=== PATIENT | female | born 1955 | race Hispanic/Latino ===

== ENCOUNTER → 2022-03-23 | Outpatient (CLI) | payer OTHER, MEDICARE ==
[~2022-03-23] MED LIST: FENOFIBRATE PO; FERROUSSULFATE PO; IOHEXOL 350 MG/ML 100ML INFUS..BTL IV ONE; LEVO-70 PO; LOSA100T58 PO; RANI150C4 PO; TRAM-355 PO
== END | disposition home or self-care (01) ==
LOC: RAH 09:03
PROVIDERS: ATTEND Family Medicine
DX: G44.221 Chronic tension-type headache, intractable (principal)
CPT/HCPCS: 70470; Q9967

== ENCOUNTER 2022-07-29 20:25 | Emergency (ER) | payer OTHER, MEDICARE ==
[~2022-07-29] VITALS: Ht 152.4 cm; Wt 81.6 kg
[~2022-07-29 20:25] MED LIST changes: -IOHEXOL 350 MG/ML 100ML INFUS..BTL IV ONE
[2022-07-29] MEDS ORDERED: 0.9%NACL 1000ML 1,000 ML IV SCH (20:30)
[2022-07-29] MEDS ORDERED: ONDANSETRON 4MG INJ IVP ONE ×2 (20:30→21:30)
[2022-07-29 21:20] LABS: EOSINOPHILS % (AUTO) 1.8 % (0.0-8.0); HEMATOCRIT 40.2 % (36-48); LYMPHOCYTES % (AUTO) 35.9 % (21.0-51.0); MEAN CORPUSCULAR HEMOGLOBIN 31.4 pg (27.0-33.0); MEAN CORPUSCULAR HGB CONC 32.6 g/dL (32.0-36.0); MEAN CORPUSCULAR VOLUME 96.4 fL (79-99); MONOCYTES % (AUTO) 6.4 % (3.0-13.0); NEUTROPHILS % (AUTO) 54.2 % (40.0-77.0); PLATELET COUNT (AUTO) 313 K/uL (130-400); RED BLOOD CELL COUNT(AUTO) 4.17 MIL/uL (4.00-5.50); RED CELL DISTRIBUTION WIDTH 12.4 % (11.0-15.5)
[2022-07-29 21:27] LABS: CREATININE 1.2 mg/dL (0.5-1.5); POTASSIUM 3.6 mmol/L (3.5-5.1)
[2022-07-29 21:30] LABS: APPEARANCE,URINE CLOUDY (CLEAR); BILIRUBIN,URINE NEGATIVE (NEGATIVE); COLOR,URINE YELLOW (YELLOW); GLUCOSE, URINE (UA) NEGATIVE (NEGATIVE); KETONES,URINE NEGATIVE (NEGATIVE); LEUKOCYTE ESTERASE ,URINE NEGATIVE Leu/uL (NEGATIVE); NITRATE,URINE NEGATIVE (NEGATIVE); OCCULT BLOOD,URINE SMALL (NEGATIVE); PROTEIN,URINE 100 mg/dL (NEGATIVE)
[2022-07-29 21:31] LABS: ALBUMIN 3.7 g/dL (3.5-5.0)
[2022-07-29 21:39] LABS: RBC,URINE 0-1 /HPF (0-1); WBC,URINE 0-1 /HPF (0-1)
[2022-07-29 21:40] LABS: BACTERIA,URINE Few /HPF (None Seen)
[2022-07-29 21:41] LABS: CALCIUM OXALATE CRYSTALS,UR Few /LPF (None Seen); SQUAMOUS EPITHELIAL CELL,UR Few /HPF (0-2)
[2022-07-29] MEDS ORDERED: 0.9% NACL 500ML IV.SOLN 500 ML IV ONE (22:42)
[2022-07-29] MEDS ORDERED: 0.9%NACL 1000ML 500 ML IV SCH (23:00)
[2022-07-30 01:40] VITALS: BP 133/78
== END 2022-07-30 01:41 | disposition home or self-care (01) ==
LOC: EDH 20:25
DX: D33.3 Benign neoplasm of cranial nerves (principal); R42 Dizziness and giddiness; R11.2 Nausea with vomiting, unspecified; E78.00 Pure hypercholesterolemia, unspecified; G43.909 Migraine, unspecified, not intractable, without status migrainosus; I10 Essential (primary) hypertension; Z88.0 Allergy status to penicillin
CPT/HCPCS: 99285; 84484; 80053; 83690; 85025; 87040 ×2; 83605 ×2; 81001; 36415; 70450; 96374; 96361; 96376; 93005; J7040; J7030; J2405 ×2; 96375

== ENCOUNTER → 2023-03-09 | Outpatient (CLI) | payer OTHER, MEDICARE ==
[~2023-03-09] VITALS: Ht 152.4 cm; Wt 69.5 kg
[~2023-03-09] MED LIST changes: -LOSA100T58 PO; +LOSA100T59 PO
[2023-03-09 09:18] LABS: BASOPHILS # (AUTO) 0.07 K/uL (0.00-0.20); BASOPHILS % (AUTO) 0.9 % (0.0-5.0); EOSINOPHILS % (AUTO) 2.5 % (0.0-8.0); HEMATOCRIT 39.2 % (36-48); IMMATURE GRANULOCYTE ABSOLUTE 0.02 K/uL (0-1); LYMPHOCYTES # (AUTO) 2.8 K/uL (1.0-4.8); LYMPHOCYTES % (AUTO) 34.3 % (21.0-51.0); MEAN CORPUSCULAR HEMOGLOBIN 31.4 pg (27.0-33.0); MEAN CORPUSCULAR HGB CONC 32.7 g/dL (32.0-36.0); MEAN CORPUSCULAR VOLUME 96.3 fL (79-99); MONOCYTES # (AUTO) 0.7 K/uL (0.1-1.0); NEUTROPHILS # (AUTO) 4.3 K/uL (1.8-7.7); NEUTROPHILS % (AUTO) 53.1 % (40.0-77.0); PLATELET COUNT (AUTO) 283 K/uL (130-400); RED BLOOD CELL COUNT(AUTO) 4.07 MIL/uL (4.00-5.50); RED CELL DISTRIBUTION WIDTH 12.6 % (11.0-15.5); WHITE BLOOD COUNT (AUTO) 8.1 K/uL (4.8-10.8)
[2023-03-09 09:28] LABS: CREATININE 1.1 mg/dL (0.5-1.5); POTASSIUM 4.1 mmol/L (3.5-5.1)
[2023-03-09 09:30] VITALS: BP 170/91; PULSE 56; RESP 17
[2023-03-09 09:32] LABS: INR < 0.93 (0.85-1.15); PROTHROMBIN TIME 10.5 SEC (9.6-11.6)
[2023-03-09 09:33] LABS: PARTIAL THROMBOPLASTIN TIME 30.7 SEC (26.3-35.5)
== END | disposition home or self-care (01) ==
LOC: CANPRESDC → DAH 10:00 → EDSTATUS 03-25 08:00
PROVIDERS: ATTEND Surgery
DX: Z01.812 Encounter for preprocedural laboratory examination (principal); K43.6 Other and unspecified ventral hernia with obstruction, without gangrene
CPT/HCPCS: 36415; 80048; 85025; 85610; 85730; 93005; A6260

== ENCOUNTER 2024-05-10 20:40 | Emergency (ER) | payer OTHER, MEDICARE ==
[~2024-05-10] VITALS: Ht 152.4 cm; Wt 67.1 kg
[~2024-05-10 20:40] MED LIST changes: -FENOFIBRATE PO; -FERROUSSULFATE PO; -LEVO-70 PO; -RANI150C4 PO; -TRAM-355 PO
--- NOTE | 2024-05-10 20:45 | NUR ---
COVID, FLU AND STREP SWABS COLLECTED AND GIVEN TO PRIMARY NURSE FOR ANY FURTHER ORDERS
[2024-05-10] MEDS: acetaMINOPHEN/coDEINE 120/12MG 5ML PO STA (21:05)
[2024-05-10] MEDS: dexaMETHasone SOD PHOSPHATE 4 MG/ML 1ML VIAL IM ONE (21:05)
[2024-05-10 21:26] LABS: RAPID GROUP A STREP negative (NEGATIVE)
[2024-05-10 21:35] LABS: SARS-CoV-2, RNA, NAAT NEGATIVE SARS CoV-2 (NEGATIVE)
[2024-05-10 21:36] LABS: INFLUENZA TYPE B Negative For Type B (NEGATIVE)
[2024-05-10 21:39] LABS: INFLUENZA TYPE A Positive For Type A (NEGATIVE)
[2024-05-10] MEDS ORDERED: LORA10TA7 PO (21:42)
[2024-05-10] MEDS ORDERED: FLUT16H NS (21:42)
[2024-05-10] MEDS ORDERED: OSEL75 PO (21:42)
--- NOTE | 2024-05-10 21:42 | ERN ---
General Chief Complaint: Multiple Complaints Stated Complaint: COUGH, SORE THROAT, SOB Time Seen by MD: 20:42 Source: patient History of Present Illness Initial Comments Patient is a 69-year-old female coming in to be evaluated for URI symptoms. Patient states that the symptoms began a couple of days ago. Main complaint is cough and nasal congestion as well as sore throat. Allergies: Coded Allergies: Penicillins (Unverified Allergy, Intermediate, ITCHING, 12/12/14) Home Meds Reported Medications Losartan Potassium (Losartan Potassium) 100 Mg Tablet, 100 MG PO AM, TAB 12/16/14 Past Medical History Past Medical History: High Cholesterol, Hypertension, Migraines Past Surgical History: Hysterectomy, Cholecystectomy, Other Surgical History Other: HERNIA ROS Dictation CONSTITUTIONAL: No chills, no fever, no weakness, no diaphoresis, no malaise. HEAD/FACE: No signs of trauma. EENT: No eye pain, no blurred vision, no tearing, no double vision, no ear pain, no ear discharge, no nose pain, no nasal congestion, no throat pain, no throat swelling, no mouth pain. RESPIRATORY: cough, no orthopnea, no SOB, no stridor, no wheezing. CARDIOVASCULAR: No chest pain, no edema, no palpitations, no syncope. GASTROINTESTINAL/ABDOMINAL: No abdominal pain, no constipation, no diarrhea, no nausea, no vomiting. GENITOURINARY: No abnormal discharge, no dysuria, no frequent urination, no hematuria. No complaints of pain in the genitals. MUSCULOSKELETAL: No back pain, no gout, no joint pain, no joint swelling, no muscle pain, no muscle stiffness, no neck pain. INTEGUMENTARY: No change in color, no change in hair/nails, no dryness, no lesion, no lumps, no rash. NEUROLOGICAL/PSYCH: No anxiety, not depressed, no emotional problem, no headache, no numbness, no pre-existing deficit, no history of seizures, no tremors, no weakness. HEMATOLOGIC/LYMPHATIC: Not anemic, no history of blood clots, no apparent bleeding, no bruising, glands not swollen. All Systems Negative, Except as Noted. Physical Exam Physical Exam Dictation VITAL SIGNS: Reviewed. GENERAL APPEARANCE: Alert, oriented x3, no acute distress, obese. HEAD AND FACE: Non-traumatic. EYES: PERRL, pink conjunctivas, eyelid no trauma, anterior chamber clear. EARS: Pinnas intact and no signs of trauma or erythema. Ear canals clear and no discharge. TMs erythema. NOSE: No discharge, no bleeding. OROPHARYNX: Mouth normal, teeth no caries, tongue pink. Pharynx clear, no erythema. Tonsils no exudates, no abscesses noted. Mucous membrane moist. NECK: Supple, non-tender, no thyromegaly, no masses, no JVD, no bruits. BREAST: Deferred. CHEST: No tenderness, no crepitus, no paradoxical movement, no retractions. LUNGS: Clear, well-ventilated, symmetric, no rales, no wheezing, no rhonchi, no stridor, good breath sounds bilaterally. HEART: Regular rate, regular rhythm, no murmur, no gallops. VASCULAR: No peripheral edema. ABDOMEN: Soft, positive bowel sounds, nondistended, no guarding, nontender, no rebound, no masses no hepatomegaly, no splenomegaly, no Stevens's sign, no hernias. RECTAL: Deferred. GENITAL: Deferred. NEUROLOGICAL: Normal speech, gross motor function intact, gross sensory function intact. MUSCULOSKELETAL: Neck nontender, full range of motion, back nontender, full range of motion. EXTREMITIES: Nontender, full range of motion. SKIN: Color pink, dry, no turgor, no rash, no lacerations, no abrasions, no contusions. LYMPHATICS: Deferred. Results Laboratory and Microbiology Lab and Micro Result Laboratory Tests Test 05/10/24 21:00 SARS-CoV-2, RNA, NAAT NEGATIVE SARS CoV-2 Group A Streptococcus Rapid negative (NEGATIVE) Labs Reviewed?: Yes MDM MDM: Differential diagnosis: URI, sinusitis, influenza a, COVID Patient is a 69-year-old female coming in to be evaluated for URI symptoms. Patient is positive for influenza A we will be treated with Tamiflu. I advised her appropriate follow up with PCP in 1-2 days. Currently patient's vitals are stable I advised her to drink plenty of fluids this will help with a viral syndr ome. I also advised her to take antipyretics to control temperature. ED Course Orders Procedure Category Date Status Time Covid Rna Naat LAB 05/10/24 In Process 20:52 Influenza Type A & B, LAB 05/10/24 In Process Rapid 20:52 Rapid (Group A Strep) LAB 05/10/24 In Process 20:52 Acetaminophen-Codeine PHA 05/10/24 Complete Elixer (Tylenol-Co 20:52 Dexamethasone 4mg/Ml PHA 05/10/24 Complete 1ml Vial (Dexametha 21:00 Current Medications Medications (Trade) Dose Ordered Sig/Alex Route PRN Reason Start Time Stop Time Status Last Admin Dose Admin Acetaminophen/ Codeine Phosphate (TYLenol-coDEINE (120/12MG 5ML) ELIXIR) 10 ml ONCE STAT PO 05/10/24 20:52 05/10/24 20:55 DC 05/10/24 21:05 Dexamethasone Sodium Phosphate (dexaMETHasone 4MG/ML 1ML VIAL) 4 mg ONCE ONCE IM 05/10/24 21:00 05/10/24 21:01 DC 05/10/24 21:05 Vital Signs Date Time Temp Pulse Resp B/P (MAP) Pulse Ox O2 Delivery O2 Flow Rate FiO2 05/10/24 21:30 99.1 74 20 148/74 97 Room Air* 0 05/10/24 20:48 78 22 150/70 95 Room Air* 0 05/10/24 20:42 99.5 88 20 177/81 95 Room Air DX & DISP Disposition: Discharge Departure Impression: Primary Impression: Influenza A Condition: Stable Scripts Loratadine (Loratadine) 10 Mg Tablet 1 TAB PO DAILY for allergy symptoms for 30 Days, #30 TAB 0 Refills Prov: PARISH SMITH MD 05/10/24 Fluticasone Propionate (Flonase Nasal [place]) 50 Mcg/Actuation [place] 2 SPRAY NS DAILY, #16 GM 0 Refills Prov: PARISH SMITH MD 05/10/24 Oseltamivir Phosphate (Tamiflu) 75 Mg Cap 1 CAP PO BID for 5 Days, #10 CAP 0 Refills Prov: PARISH SMITH MD 05/10/24 Additional Instructions: FOLLOW-UP WITH PRIMARY CARE PROVIDER IN 1 TO 2 DAYS. TAKE MEDICATIONS DIRECTED HERE IN THE EMERGENCY ROOM. OKAY TO CONTINUE HOME MEDICATIONS UNLESS OTHERWISE DISCUSSED DURING YOUR VISIT IN THE EMERGENCY ROOM TODAY. RETURN TO YOUR NEAREST EMERGENCY ROOM IF SYMPTOMS WORSEN OR IF THERE IS NO IMPROVEMENT. CALL 911 IF YOU NEED IMMEDIATE ASSISTANCE. TAKE TYLENOL [id number] NEEDED AND IF NO CONTRAINDICATIONS ARE PRESENT. INCREASE ORAL HYDRATION. A WOUND CULTURE OR URINE CULTURE WAS ORDERED HERE IN THE EMERGENCY ROOM DEPARTMENT PLEASE FOLLOW-UP WITH PRIMARY CARE PROVIDER AND ADVISE THEM TO GET REPEAT PORTS FROM OUR FACILITY. IF YOU HAD ANY MIS WRAP/SPLINTS THAT WERE APPLIED HERE, PLEASE DO NOT REMOVE THEM UNTIL YOU SEE YOUR PRIMARY CARE OR SPECIALTY. Referrals: Referrals: TONI MICHELLE (PCP) Time of Disposition: 21:41 PARISH SMITH MD May 10, 2024 21:42
[2024-05-10 21:52] VITALS: BP 151/72; PULSE 78; RESP 20; TEMP 99.1; O2SAT 95
== END 2024-05-10 21:52 | disposition home or self-care (01) ==
LOC: EDH 20:40
DX: J10.1 Influenza due to other identified influenza virus with other respiratory manifestations (principal); E78.00 Pure hypercholesterolemia, unspecified; I10 Essential (primary) hypertension; Z20.822 Contact with and (suspected) exposure to COVID-19; Z88.0 Allergy status to penicillin; Z90.49 Acquired absence of other specified parts of digestive tract; Z90.710 Acquired absence of both cervix and uterus
CPT/HCPCS: 99283; 87635; 87880; 87804 ×2; 96372; J1100

== ENCOUNTER 2024-09-24 15:40 | Emergency (ER) | payer OTHER, MEDICARE ==
[~2024-09-24] VITALS: Ht 152.4 cm; Wt 70.3 kg
[~2024-09-24 15:40] MED LIST changes: +FLUT16H NS; +LORA10TA7 PO; +OSEL75 PO
--- NOTE | 2024-09-24 15:57 | EKG ---
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
[2024-09-24] MEDS: LACTATED RINGERS 1000ML 1,000 ML IV ONE (16:10)
[2024-09-24 16:33] LABS: BASOPHILS # (AUTO) 0.06 K/uL (0.00-0.20); BASOPHILS % (AUTO) 0.7 % (0.0-5.0); EOSINOPHILS # (AUTO) 0.19 K/uL (0.00-0.70); EOSINOPHILS % (AUTO) 2.3 % (0.0-8.0); HEMATOCRIT 38.5 % (36-48); IMMATURE GRANULOCYTE ABSOLUTE 0.03 K/uL (0-1); LYMPHOCYTES # (AUTO) 2.9 K/uL (1.0-4.8); LYMPHOCYTES % (AUTO) 35.2 % (21.0-51.0); MEAN CORPUSCULAR HEMOGLOBIN 31.8 pg (27.0-33.0); MEAN CORPUSCULAR HGB CONC 33.2 g/dL (32.0-36.0); MEAN CORPUSCULAR VOLUME 95.5 fL (79-99); MONOCYTES # (AUTO) 0.8 K/uL (0.1-1.0); NEUTROPHILS # (AUTO) 4.4 K/uL (1.8-7.7); NEUTROPHILS % (AUTO) 52.4 % (40.0-77.0); PLATELET COUNT (AUTO) 274 K/uL (130-400); RED BLOOD CELL COUNT(AUTO) 4.03 MIL/uL (4.00-5.50); RED CELL DISTRIBUTION WIDTH 12.7 % (11.0-15.5); WHITE BLOOD COUNT (AUTO) 8.3 K/uL (4.8-10.8)
[2024-09-24 16:41] LABS: CREATININE 1.2 mg/dL (0.5-1.0); POTASSIUM 3.7 mmol/L (3.5-5.1)
[2024-09-24 16:48] LABS: INR 0.96 (0.85-1.15); PROTHROMBIN TIME 10.2 SEC (9.6-11.6)
[2024-09-24 16:49] LABS: PARTIAL THROMBOPLASTIN TIME 28.8 SEC (26.3-35.5)
[2024-09-24 16:55] LABS: B-TYPE NATRIURETIC PEPTIDE 10 pg/mL (0-100)
--- NOTE | 2024-09-24 17:14 | HMCIMG ---
PORTABLE CHEST RADIOGRAPH INDICATION: weakness COMPARISON: 12/18/2014 FINDINGS: Heart size is normal. Mild calcific plaque is present along the aortic arch clifford. The pulmonary vascularity and abhishek appear normal. No abnormal pulmonary parenchymal opacity or consolidation identified. No significant pleural effusion noted. No pneumothorax detected. IMPRESSION: No radiographic evidence for any acute cardiopulmonary process.
--- NOTE | 2024-09-24 17:51 | ERN ---
General Chief Complaint: Weakness Stated Complaint: BLURRY VISION DROWSINESS Time Seen by MD: 15:41 Source: patient History of Present Illness Initial Comments Is a 69-year-old female coming in to be evaluated multiple complaints. Per patient she has been feeling weak for some time and she also states that she has been having vertigo for many months. Patient was here for further evaluation. Allergies: Coded Allergies: Penicillins (Unverified Allergy, Intermediate, ITCHING, 12/12/14) Home Meds Active Scripts Loratadine (Loratadine) 10 Mg Tablet, 1 TAB PO DAILY for allergy symptoms for 30 Days, #30 TAB 0 Refills Prov:PARISH SMITH MD 05/10/24 Fluticasone Propionate (Flonase Nasal [place]) 50 Mcg/Actuation [place], 2 SPRAY NS DAILY, #16 GM 0 Refills Prov:PARISH SMITH MD 05/10/24 Oseltamivir Phosphate (Tamiflu) 75 Mg Cap, 1 CAP PO BID for 5 Days, #10 CAP 0 Refills Prov:PARISH SMITH MD 05/10/24 Reported Medications Losartan Potassium (Losartan Potassium) 100 Mg Tablet, 100 MG PO AM, TAB 12/16/14 Past Medical History Past Medical History: Depression, High Cholesterol, Heart Disease, Hypertension Past Surgical History: Other Surgical History Other: HERNIA, HEART CATH ROS Dictation CONSTITUTIONAL: No chills, no fever, no weakness, no diaphoresis, no malaise. HEAD/FACE: No signs of trauma. EENT: No eye pain, no blurred vision, no tearing, no double vision, no ear pain, no ear discharge, no nose pain, no nasal congestion, no throat pain, no throat swelling, no mouth pain. RESPIRATORY: No cough, no orthopnea, no SOB, no stridor, no wheezing. CARDIOVASCULAR: No chest pain, no edema, no palpitations, no syncope. GASTROINTESTINAL/ABDOMINAL: No abdominal pain, no constipation, no diarrhea, no nausea, no vomiting. GENITOURINARY: No abnormal discharge, no dysuria, no frequent urination, no hematuria. No complaints of pain in the genitals. MUSCULOSKELETAL: No back pain, no gout, no joint pain, no joint swelling, no muscle pain, no muscle stiffness, no neck pain. INTEGUMENTARY: No change in color, no change in hair/nails, no dryness, no lesion, no lumps, no rash. NEUROLOGICAL/PSYCH: No anxiety, not depressed, no emotional problem, no headache, no numbness, no pre-existing deficit, no history of seizures, no tremors, no weakness. HEMATOLOGIC/LYMPHATIC: Not anemic, no history of blood clots, no apparent bleeding, no bruising, glands not swollen. All Systems Negative, Except as Noted. Physical Exam Physical Exam Dictation VITAL SIGNS: Reviewed. GENERAL APPEARANCE: Alert, oriented x3, no acute distress, obese. HEAD AND FACE: Non-traumatic. EYES: PERRL, pink conjunctivas, eyelid no trauma, anterior chamber clear. EARS: Pinnas intact and no signs of trauma or erythema. Ear canals clear and no discharge. TMs no erythema. NOSE: No discharge, no bleeding. OROPHARYNX: Mouth normal, teeth no caries, tongue pink. Pharynx clear, no erythema. Tonsils no exudates, no abscesses noted. Mucous membrane moist. NECK: Supple, non-tender, no thyromegaly, no masses, no JVD, no bruits. BREAST: Deferred. CHEST: No tenderness, no crepitus, no paradoxical movement, no retractions. LUNGS: Clear, well-ventilated, symmetric, no rales, no wheezing, no rhonchi, no stridor, good breath sounds bilaterally. HEART: Regular rate, regular rhythm, no murmur, no gallops. VASCULAR: No peripheral edema. ABDOMEN: Soft, positive bowel sounds, nondistended, no guarding, nontender, no rebound, no masses no hepatomegaly, no splenomegaly, no Stevens's sign, no hernias. RECTAL: Deferred. GENITAL: Deferred. NEUROLOGICAL: Normal speech, gross motor function intact, gross sensory function intact. MUSCULOSKELETAL: Neck nontender, full range of motion, back nontender, full range of motion. EXTREMITIES: Nontender, full range of motion. SKIN: Color pink, dry, no turgor, no rash, no lacerations, no abrasions, no contusions. LYMPHATICS: Deferred. Results Laboratory and Microbiology Lab and Micro Result Laboratory Tests Test 09/24/24 16:24 White Blood Count 8.3 K/uL (4.8-10.8) Red Blood Count 4.03 MIL/uL (4.00-5.50) Hemoglobin 12.8 g/dL (12.0-16.0) Hematocrit 38.5 % (36-48) Mean Corpuscular Volume 95.5 fL (79-99) Mean Corpuscular Hemoglobin 31.8 pg (27.0-33.0) Mean Corpuscular Hemoglobin Concent 33.2 g/dL (32.0-36.0) Red Cell Distribution Width 12.7 % (11.0-15.5) Platelet Count 274 K/uL (130-400) Mean Platelet Volume 11.6 fL (7.5-10.5) H Immature Granulocyte % (Auto) 0.4 % (0-1) Neutrophils (%) (Auto) 52.4 % (40.0-77.0) Lymphocytes (%) (Auto) 35.2 % (21.0-51.0) Monocytes (%) (Auto) 9.0 % (3.0-13.0) Eosinophils (%) (Auto) 2.3 % (0.0-8.0) Basophils (%) (Auto) 0.7 % (0.0-5.0) Neutrophils # (Auto) 4.4 K/uL (1.8-7.7) Lymphocytes # (Auto) 2.9 K/uL (1.0-4.8) Monocytes # (Auto) 0.8 K/uL (0.1-1.0) Eosinophils # (Auto) 0.19 K/uL (0.00-0.70) Basophils # (Auto) 0.06 K/uL (0.00-0.20) Absolute Immature Granulocyte (auto 0.03 K/uL (0-1) Nucleated Red Blood Cells 0.0 % (0.0-0.19) Prothrombin Time 10.2 SEC (9.6-11.6) Prothromb Time International Ratio 0.96 (0.85-1.15) Activated Partial Thromboplast Time 28.8 SEC (26.3-35.5) Sodium Level 140 mmol/L (136-145) Potassium Level 3.7 mmol/L (3.5-5.1) Chloride Level 106 mmol/L (101-111) Carbon Dioxide Level 26 mmol/L (21-32) Blood Urea Nitrogen 19 mg/dL (7-18) H Creatinine 1.2 mg/dL (0.5-1.0) H Glomerular Filtration Rate Calc 49 mL/min (>90) Random Glucose 107 mg/dL (70-105) H Total Calcium 9.4 mg/dL (8.5-10.1) Magnesium Level 2.00 mg/dL (1.80-2.40) Total Creatine Kinase 223 U/L (21-232) # Troponin I High Sensitivity 6 ng/L (4-50) B-Type Natriuretic Peptide 10 pg/mL (0-100) Labs Reviewed?: Yes EKG/XRAY/US/CT/MRI EKG Comment 09/24/2024 time 3:55 p.m. Ventricular rate 72 Sinus [place] [address] wave elevation or depression CT Scan Comment [place] [id number] [address] IMAGING REPORT Signed PATIENT: INES LINK MR#: [id number] : 1955 SEX: F AGE: 69 LOCATION: ED ORDER 51 STATUS: REG REPORT#: [id number] SERVICE 50 REASON: VERTIGO ORDERING PHYSICIAN: PARISH SMITH MD PROCEDURE: HEAD WO - CT HEAD/BRAIN W/O CONTRAST CT HEAD WITHOUT CONTRAST INDICATION: Vertigo TECHNIQUE: Noncontrast axial helical CT images from the vertex through the skull base using 5 mm slice thickness without contrast material. Coronal and sagittal reconstructions were also included. Dose reduction techniques was used using integrated, automated and adaptive dose reduction exposure control. CT was performed with one or more of the following dose reduction techniques: Automated exposure control, adjustment of the mA and/or kV according to patient size, or use of iterative reconstruction technique. COMPARISON: None FINDINGS: Scattered and coalescent subcortical and periventricular white matter low attenuating areas likely represent residual of chronic small vessel arteriopathy and/or remote vascular insult. Generalized mild cerebral cortical atrophy is present.. No evidence for abnormal extra-axial fluid collections or masses. The ventricles and sulci are normal in size and configuration. No evidence for intracranial parenchymal, epidural, or subdural hemorrhage, mass effect or midline shift. The guy-white matter differentiation is well preserved. No secondary evidence to suggest acute ischemia. Mild calcific plaque is present along the clifford of the cavernous segments of both internal carotid arteries. The brainstem and cerebellum appear normal. The visualized orbits appear unremarkable. 1.5 cm right maxillary sinus mucus retention cyst. Remainder of the visible paranasal sinuses and mastoid air cells are clear. The calvarium appears normal. IMPRESSION: Chronic white matter ischemic changes, mild brain atrophy, and arteriosclerotic disease as described, without acute component. DICTATED BY: SIOBHAN TAYLOR MD DATE: 09/24/241849 ELECTRONICALLY SIGNED BY: SIOBHAN TAYLOR MD DATE: 09/24/241852 [facility] MDM: Differential diagnosis: Sinusitis, dehydration, vertigo, Rationale: Tests considered and ordered secondary to shared decision making include: Previous outside records reviewed: Old ER visits. Risk of complication and/or morbidity or mortality of patient management: None Medications-Per medication reconciliation Patient is a 69-year-old female coming in with multiple complaints. CT of the head disclose a sinusitis. Patient has been having these symptoms for quite some time patient will be discharged with oral antibiotics and symptomatic medication. Patient will be advised proper follow up with PCP in the ENT. ED Course Orders Procedure Category Date Status Time Cbc With Differential LAB 09/24/24 Complete 15:46 Prothrombin Time With LAB 09/24/24 Complete INR 15:46 B-Type Natriuretic LAB 09/24/24 Complete Peptide 15:46 Chest 1vw RAD 09/24/24 Resulted 15:46 12 Lead Ekg Tracing- EKG 09/24/24 Complete Technical 15:46 Lactated Ringers PHA 09/24/24 Complete 1000ml (Lactated 16:00 Magnesium LAB 09/24/24 Complete 15:46 Creatine Kinase, Total LAB 09/24/24 Complete 15:46 Troponin I High LAB 09/24/24 Complete Sensitivity 15:46 Urinalysis Profile LAB 09/24/24 Logged 15:46 Partial LAB 09/24/24 Complete Thromboplastin Time 15:46 Basic Metabolic Panel LAB 09/24/24 Complete 15:46 Ct Head/Brain W/O CT 09/24/24 Resulted Contrast 17:51 Current Medications Medications (Trade) Dose Ordered Sig/Alex Route PRN Reason Start Time Stop Time Status Last Admin Dose Admin Lactated Ringer's 1,000 ml @ 0 mls/hr ONCE ONCE IV 09/24/24 16:00 09/24/24 16:01 DC 09/24/24 16:10 Vital Signs Date Time Temp Pulse Resp B/P (MAP) Pulse Ox O2 Delivery O2 Flow Rate FiO2 09/24/24 18:00 98.1 66 16 116/73 98 Room Air* 0 21 09/24/24 16:00 98.2 80 16 150/ 98 Room Air* 0 21 09/24/24 15:44 99.3 74 16 175/95 98 Room Air 0 DX & DISP Disposition: Discharge Departure Impression: Primary Impression: Sinusitis, chronic Additional Impression: Dehydration Condition: Stable Scripts Loratadine (Loratadine) 10 Mg Tablet 1 TAB PO DAILY for allergy symptoms for 30 Days, #30 TAB 0 Refills Prov: PARISH SMITH MD 09/24/24 Fluticasone Propionate (Flonase Nasal [place]) 50 Mcg/Actuation [place] 2 SPRAY NS DAILY, #16 GM 0 Refills Prov: PARISH SMITH MD 09/24/24 Clindamycin HCl (Clindamycin HCl) 300 Mg Capsule 1 CAP PO TID for 10 Days, #30 CAP 0 Refills Prov: PARISH SMITH MD 09/24/24 Additional Instructions: FOLLOW-UP WITH PRIMARY CARE PROVIDER IN 1 TO 2 DAYS. TAKE MEDICATIONS DIRECTED HERE IN THE EMERGENCY ROOM. OKAY TO CONTINUE HOME MEDICATIONS UNLESS OTHERWISE DISCUSSED DURING YOUR VISIT IN THE EMERGENCY ROOM TODAY. RETURN TO YOUR NEAREST EMERGENCY ROOM IF SYMPTOMS WORSEN OR IF THERE IS NO IMPROVEMENT. CALL 911 IF YOU NEED IMMEDIATE ASSISTANCE. TAKE TYLENOL [id number] NEEDED AND IF NO CONTRAINDICATIONS ARE PRESENT. INCREASE ORAL HYDRATION. A WOUND CULTURE OR URINE CULTURE WAS ORDERED HERE IN THE EMERGENCY ROOM DEPARTMENT PLEASE FOLLOW-UP WITH PRIMARY CARE PROVIDER AND ADVISE THEM TO GET REPEAT PORTS FROM OUR FACILITY. IF YOU HAD ANY MIS WRAP/SPLINTS THAT WERE APPLIED HERE, PLEASE DO NOT REMOVE THEM UNTIL YOU SEE YOUR PRIMARY CARE OR SPECIALTY. Referrals: Referrals: TONI MICHELLE (PCP) JB BHAKTA MD Time of Disposition: 19:10 PARISH SMITH MD Sep 24, 2024 17:51
--- NOTE | 2024-09-24 18:53 | HMCIMG ---
CT HEAD WITHOUT CONTRAST INDICATION: Vertigo TECHNIQUE: Noncontrast axial helical CT images from the vertex through the skull base using 5 mm slice thickness without contrast material. Coronal and sagittal reconstructions were also included. Dose reduction techniques was used using integrated, automated and adaptive dose reduction exposure control. CT was performed with one or more of the following dose reduction techniques: Automated exposure control, adjustment of the mA and/or kV according to patient size, or use of iterative reconstruction technique. COMPARISON: None FINDINGS: Scattered and coalescent subcortical and periventricular white matter low attenuating areas likely represent residual of chronic small vessel arteriopathy and/or remote vascular insult. Generalized mild cerebral cortical atrophy is present.. No evidence for abnormal extra-axial fluid collections or masses. The ventricles and sulci are normal in size and configuration. No evidence for intracranial parenchymal, epidural, or subdural hemorrhage, mass effect or midline shift. The guy-white matter differentiation is well preserved. No secondary evidence to suggest acute ischemia. Mild calcific plaque is present along the clifford of the cavernous segments of both internal carotid arteries. The brainstem and cerebellum appear normal. The visualized orbits appear unremarkable. 1.5 cm right maxillary sinus mucus retention cyst. Remainder of the visible paranasal sinuses and mastoid air cells are clear. The calvarium appears normal. IMPRESSION: Chronic white matter ischemic changes, mild brain atrophy, and arteriosclerotic disease as described, without acute component.
[2024-09-24 19:08] VITALS: BP 142/58; PULSE 60; RESP 16; TEMP 98; O2SAT 98
[2024-09-24] MEDS ORDERED: CLIN-141 PO (19:11)
== END 2024-09-24 19:38 | disposition home or self-care (01) ==
LOC: EDH 15:40
DX: J32.9 Chronic sinusitis, unspecified (principal); E86.0 Dehydration; E78.00 Pure hypercholesterolemia, unspecified; I10 Essential (primary) hypertension; Z88.0 Allergy status to penicillin; F32.A Depression, unspecified; Z79.899 Other long term (current) drug therapy
CPT/HCPCS: 99285; 96360; 70450; 71045; 82550; 83735; 84484; 80048; 83880; 85025; 85610; 85730; 36415; 93005; J7120

== ENCOUNTER 2024-10-28 19:46 | Emergency (ER) | payer MEDICARE ==
[~2024-10-28] VITALS: Ht 152.4 cm; Wt 72.6 kg
[~2024-10-28 19:46] MED LIST changes: +CLIN-141 PO
--- NOTE | 2024-10-28 20:25 | ERN ---
General Chief Complaint: FOOT INJURY/PAIN Stated Complaint: RT FOOT PAIN Time Seen by MD: 19:50 History of Present Illness Initial Comments 69-year-old female who was attacked by a dog. The dog was chased off with a stick by her son. Patient did fall. Her main complaint is right foot pain at the metatarsal phalangeal head of toes one two and three. There was no broken skin there was no sign of ecchymosis or bruising or erythema. Patient states that she does have weakness in her right leg. Her primary care physician stated that there was nothing to do for her right leg weakness and they are in the process of making her home safe for. Allergies: Coded Allergies: Penicillins (Unverified Allergy, Intermediate, ITCHING, 12/12/14) Home Meds Active Scripts Loratadine (Loratadine) 10 Mg Tablet, 1 TAB PO DAILY for allergy symptoms for 30 Days, #30 TAB 0 Refills Prov:PARISH SMITH MD 09/24/24 Fluticasone Propionate (Flonase Nasal [place]) 50 Mcg/Actuation [place], 2 SPRAY NS DAILY, #16 GM 0 Refills Prov:PARISH SMITH MD 09/24/24 Clindamycin HCl (Clindamycin HCl) 300 Mg Capsule, 1 CAP PO TID for 10 Days, #30 CAP 0 Refills Prov:PARISH SMITH MD 09/24/24 Loratadine (Loratadine) 10 Mg Tablet, 1 TAB PO DAILY for allergy symptoms for 30 Days, #30 TAB 0 Refills Prov:PARISH SMITH MD 05/10/24 Fluticasone Propionate (Flonase Nasal [place]) 50 Mcg/Actuation [place], 2 SPRAY NS DAILY, #16 GM 0 Refills Prov:PARISH SMITH MD 05/10/24 Oseltamivir Phosphate (Tamiflu) 75 Mg Cap, 1 CAP PO BID for 5 Days, #10 CAP 0 Refills Prov:PARISH SMITH MD 05/10/24 Reported Medications Losartan Potassium (Losartan Potassium) 100 Mg Tablet, 100 MG PO AM, TAB 12/16/14 Past Medical History Past Medical History: Asthma, Bronchitis, Depression, High Cholesterol, Heart Disease, Hypertension Past Surgical History: Other, Surgical History Other: HERNIA, HEART CATH EENTM: (-) eye pain, (-) blurred vision, (-) tearing, (-) double vision, (-) ear pain, (-) ear discharge, (-) nose pain, (-) nose congestion, (-) throat pain, (-) Throat swelling, (-) mouth pain, (-) tooth pain, (-) mouth swelling, (-) other documentation Respiratory: (-) cough, (-) orthopnea, (-) short of breath, (-) stridor, (-) wheezing, (-) other documentation Cardiovascular: (-) chest pain, (-) edema, (-) palpitations, (-) syncope, (-) dyspnea on exertion, (-) other documentation Gastrointestinal/Abdominal: (-) nausea, (-) vomiting, (-) diarrhea, (-) abdominal pain, (-) abdominal distention, (-) constipation, (-) rectal bleeding, (-) dark stool/melena, (-) other documentation Musculoskeletal: (-) Neck pain, (-) back pain, (-) Flank Pain, (-) joint pain, (-) joint swelling, (-) muscle pain, (-) muscle stiffness, (-) gout, (-) other documentation (Patient does state that she has right leg weakness and an abnormal gait, also she feels like her right calf has needles and pins sensation at all times. Her right thigh is fine.) Skin: (-) laceration, (-) contusion, (-) abrasion, (-) abscess, (-) rash, (-) change in color, (-) change in hair, (-) change in nails, (-) diaphoresis, (-) dryness, (-) other documentation Neuro: (-) altered mental status, (-) headache, (-) syncope, (-) paralysis, (-) numbness, (-) seizure, (-) pre-existing deficit, (-) tremors, (-) weakness, (-) dizziness, (-) slurred speech, (-) vertigo, (-) other documentation Physical Exam General Appearance: (+) mild distress Orientation: (+) alert, (+) oriented x 3 Head/Face Trauma: No Eye: bilateral eye normal inspection, bilateral eye PERRL, bilateral eye EOMI Ear, Nose, Throat Comment Patient is hard of hearing Neck: (+) normal inspection Respiratory: (+) chest non-tender Heart: (+) regular Vascular: (+) no edema, (+) normal peripheral pulse Extremities: (+) normal range of motion, (+) non-tender, (+) normal inspection, (+) no pedal edema, (+) no calf tenderness Extremities Comment Given patient's statement of weakness on her right leg we tested the sensation of both her lower extremities on the medial and lateral sides of her calves thighs feet kneecaps her sensation was equal normal in all those areas. MDM The patient is here for a chief complaint of right foot metatarsal pain toes 123. Physical exam of the area is totally normal except for tenderness there. I will get plain films of her right foot but I will also get a CT scan of her lumbar sacral spine because of her right leg weakness and gait imbalance. Patient's plain films of her foot are negative for fracture, there is soft tissue swelling. CT spine of the lumbar and sacral region show multiple areas of spinal stenosis and disc bulging especially in the distal lumbar spine which could explain the numbness and tingling in the patient's right calf. ED Course Orders Procedure Category Date Status Time Foot Comp 3+Vws Rt RAD 10/28/24 Resulted 19:56 Ct Lumbar Spine W/O CT 10/28/24 Resulted Contrast 20:08 Ibuprofen 600 Mg PHA 10/28/24 In Process Tablet (Motrin) 21:30 Current Medications Medications (Trade) Dose Ordered Sig/Alex Route PRN Reason Start Time Stop Time Status Last Admin Dose Admin Ibuprofen (moTRIN) 600 mg ONCE ONCE PO 10/28/24 21:30 10/28/24 21:31 10/28/24 21:19 Vital Signs Date Time Temp Pulse Resp B/P (MAP) Pulse Ox O2 Delivery O2 Flow Rate FiO2 10/28/24 21:05 99.0 73 16 149/70 97 Room Air* 0 21 10/28/24 19:57 99.3 70 18 154/74 98 Room Air* 0 21 10/28/24 19:47 99.3 67 16 156/74 98 Room Air DX & DISP Disposition: Discharge Departure Impression: Primary Impression: Right foot injury Additional Impression: Spinal stenosis of lumbar region at multiple levels Condition: Stable Additional Instructions: You have no injuries to the bones in your right foot. There maybe some soft tissue swelling from trauma. The best treatment would be elevation ice or warm compresses. You can take ibuprofen for pain. The CT scan of your lumbar sacral region shows multiple areas of spinal stenosis and also disc bulging, the worst is at L4-L5 L5-S1. These findings can explain your right leg weakness and also the numbness and tingling in her right calf. You need to follow-up with your primary care physician and see a neurologist or a back surgeon. Referrals: TONI MICHELLE (PCP) MEL COPELAND MD October 28, 2024 20:25
--- NOTE | 2024-10-28 20:54 | HMCIMG ---
CT LUMBAR SPINE W/O CONTRAST HISTORY: Right leg weakness COMPARISON: None TECHNIQUE: Multiple sequential axial images of the lumbar spine were obtained including post processing sagittal and coronal reconstruction images. Patient was not given contrast through intravenous route. FINDINGS: There is no loss of vertebral height. Evaluation for disc and cord pathology is limited with CT study. No evidence of fracture or dislocation is seen. There are degenerative changes in lumbar spine spondylosis. Mild annular disc bulges are seen at L2-3 through L5-S1 levels. Disc/osteophyte complexes are seen at L2-3, L3-4 and L5-S1 levels. Central canal narrowings are seen throughout the lumbar spine. IMPRESSION: 1. No fracture is seen. Degenerative changes in lumbar spine spondylosis and central canal narrowing. CT was performed with one or more following dose reduction techniques: automated exposure control, adjustment of the mA and kv according to patient's size, or use of a iterative reconstruction technique.
--- NOTE | 2024-10-28 20:58 | HMCIMG ---
FOOT COMP 3+VWS RT HISTORY: Dog bite COMPARISON: None TECHNIQUE: 3 images of the right foot were obtained. FINDINGS: There is no acute displaced fracture or dislocation. There is soft tissue swelling. No evidence of radiopaque foreign body is seen. Interphalangeal joint space narrowing is seen. Degenerative changes are seen. IMPRESSION: 1. Findings as described above.
[2024-10-28] MEDS: ibuPROFEN 600 MG TABLET PO ONE (21:19)
[2024-10-28 21:38] VITALS: BP 145/68; PULSE 69; RESP 15; TEMP 98.5; O2SAT 96
== END 2024-10-28 21:45 | disposition home or self-care (01) ==
LOC: EDH 19:46
DX: S99.921A Unspecified injury of right foot, initial encounter (principal); M48.061 Spinal stenosis, lumbar region without neurogenic claudication; J45.909 Unspecified asthma, uncomplicated; E78.00 Pure hypercholesterolemia, unspecified; I10 Essential (primary) hypertension; Z88.0 Allergy status to penicillin; Z98.890 Other specified postprocedural states; W18.39XA Other fall on same level, initial encounter; Y93.89 Activity, other specified; Y92.89 Other specified places as the place of occurrence of the external cause; Y99.8 Other external cause status
CPT/HCPCS: 72131; 73630; 99284

== ENCOUNTER → 2025-04-03 | Emergency (ER) | payer MEDICARE, MEDICAID ==
[~2025-04-03] VITALS: Ht 152.4 cm; Wt 72.6 kg
[~2025-04-03] MED LIST changes: +PRED20TA3 PO
[2025-04-03 11:14] VITALS: BP 152/87; PULSE 78; RESP 18; TEMP 99.2
--- NOTE | 2025-04-03 11:33 | ERN ---
ED Note History of Present Illness Stated Complaint: FALL Chief Complaint: Mechanical Fall Time Seen by MD: 11:22 Time Seen by Midlevel: 11:28 Dictation: 69-year-old female who is hard of hearing and suffers from hypertension coming [facility]. Patient states she had a ground level fall four days ago. Patient states he tripped and fell forward. Denies any LOC, no blood thinners. Patient went to see the PCP for complaints of headache and right shoulder pain and was sent here for evaluation. Patient denies having any nausea, vomiting or diarrhea. Denies any dizziness or gait disturbances. Denies any numbness, tingling or any unilateral weakness. Denies any chest pain or chest discomfort, back pain or jaw pain. Allergies: Coded Allergies: Penicillins (Unverified Allergy, Intermediate, ITCHING, 12/12/14) Home Meds Active Scripts Prednisone (Prednisone) 20 Mg Tablet, 1 TAB PO AD for 6 Days, #14 TAB 0 Refills TAKE 1 TAB BY MOUTH THREE TIMES PER DAY X3 DAYS, THEN TAKE 1 TAB BY MOUTH TWICE A DAY X2 DAYS, THEN TAKE 1 TAB BY MOUTH ONCE A DAY X1 DAY. Prov:ABDULLAHI KRAFT MD 12/21/24 Loratadine (Loratadine) 10 Mg Tablet, 1 TAB PO DAILY for allergy symptoms for 30 Days, #30 TAB 0 Refills Prov:PARISH SMITH MD 09/24/24 Fluticasone Propionate (Flonase Nasal [place]) 50 Mcg/Actuation [place], 2 SPRAY NS DAILY, #16 GM 0 Refills Prov:PARISH SMITH MD 09/24/24 Clindamycin HCl (Clindamycin HCl) 300 Mg Capsule, 1 CAP PO TID for 10 Days, #30 CAP 0 Refills Prov:PARISH SMITH MD 09/24/24 Loratadine (Loratadine) 10 Mg Tablet, 1 TAB PO DAILY for allergy symptoms for 30 Days, #30 TAB 0 Refills Prov:PARISH SMITH MD 05/10/24 Fluticasone Propionate (Flonase Nasal [place]) 50 Mcg/Actuation [place], 2 SPRAY NS DAILY, #16 GM 0 Refills Prov:PARISH SMITH MD 05/10/24 Oseltamivir Phosphate (Tamiflu) 75 Mg Cap, 1 CAP PO BID for 5 Days, #10 CAP 0 Refills Prov:PARISH SMITH MD 05/10/24 Reported Medications Losartan Potassium (Losartan Potassium) 100 Mg Tablet, 100 MG PO AM, TAB 12/16/14 Past Medical History Past Medical History: Anxiety, Depression, High Cholesterol, Hypertension, Renal Disese Surgical History: Hysterectomy Surgical History Other: ABD HERNIA,LT NEPHRECTOMY Family History: Negative Social History: Negative History: Not Applicable Review of System Dictation Constitutional: Negative for fever,chills, and weight loss Eyes: Negative for injury, pain,redness, and discharge ENT: Negative for injury,pain or swelling Cardiovascular: Negative for chest pain, palpitations, and edema Respiratory: Negative for shortness of breath, cough, and wheezing, Abdomen/GI: Negative for abdominal pain, nausea, vomiting, diarrhea, and constipation Back: Negative for injury and pain : Negative for injury, bleeding and discharge MS/Extremity: Negative for injury and deformity, complaining of right shoulder pain Skin: Negative for rash, and discoloration Neuro: Positive for headache, no weakness,no numbness, no tingling, and no seizure Psych: Negative for suicide ideation, homicidal ideation, and hallucinations Review of Systems: was completed Initial Vital Sign VS Vital Signs Date Time Temp Pulse Resp B/P (MAP) Pulse Ox O2 Delivery O2 Flow Rate FiO2 04/03/25 11:14 99.1 78 18 152/87 99 Room Air 0 Physical Exam Dictation General: awake, alert, NAD Head/Face: Normocephalic, atraumatic Eyes: PERRL, EOMI, vision at baseline ENT: oral cavity clear, TMs clear, no signs of infection Neck: Trachea midline, supple, no nuchal rigidity Cardiovascular: RRR, normal S1/S2, No MRGs, no JVD Respiratory: CTAB, no respiratory distress, No rales or wheezes Abdomen: Soft, non-tender, non-distended, normal bowel sounds, no guarding or rebound. Skin: Warm, dry, normal turgor, no rash MS/Extremity: Pulses equal, no cyanosis, neurovascular intact, FROM Neuro: COAx4, GCS 15, strength 5/5, CN 2-12 intact, normal cerebellar exam, normal gait, Psych: Normal behavior, mood, and affect normal Results (Laboratory/Radiology) X-RAY Comment: [facility] [address] [id number] IMAGING REPORT Signed PATIENT: INES LINK MR#: [id number] : 1955 SEX: F AGE: 69 LOCATION: ED ORDER 22 STATUS: REG [facility] REPORT#: [id number] SERVICE 21 REASON: fall ORDERING PHYSICIAN: SHIRLEY KIMBALL CNP PROCEDURE: SHOL 2V RT - SHOULDER COMP 2+VWS RT EXAM: CR right Shoulder, 3 View. CLINICAL HISTORY: fall COMPARISON: None provided. FINDINGS: BONES: No acute fracture or aggressive appearing osseous lesion. JOINTS: No dislocation. The joint spaces are normal. Heterotopic calcification within the rotator interval likely reflecting rotator cuff tendon pathology. SOFT TISSUES: The soft tissues are unremarkable. IMPRESSION: No acute abnormality evident on examination of the right shoulder. No acute fracture or dislocation. /[place] DICTATED BY: RIMMA CONNER Jr., MD DATE: 04/03/251427 CT Scan Comment: [facility] [address] [id number] IMAGING REPORT Signed PATIENT: INES LINK MR#: [id number] : 1955 SEX: F AGE: 69 LOCATION: ED ORDER 22 STATUS: REG ER REPORT#: [id number] SERVICE 21 REASON: fall ORDERING PHYSICIAN: SHIRLEY KIMBALL CNP PROCEDURE: HEAD WO - CT HEAD/BRAIN W/O CONTRAST EXAM: CT Head Without IV contrast. CLINICAL HISTORY: fall TECHNIQUE: Axial computed tomography images of the head/brain without intravenous contrast. COMPARISON: None provided. FINDINGS: BRAIN: Chronic white matter small vessel ischemic changes bilaterally. No evidence of acute hemorrhage. No mass lesion. No CT evidence for acute territorial infarct. No midline shift or extra-axial collections. VENTRICLES: No hydrocephalus. ORBITS: The orbits are unremarkable. SINUSES AND MASTOIDS: The paranasal sinuses and mastoid air cells are clear. BONES: No fracture. Hyperosteosis frontalis interna. SOFT TISSUES: Unremarkable. IMPRESSION: 1. No acute intracranial findings. /[place] DICTATED BY: RIMMA CONNER Jr., MD DATE: 04/03/251430 ELECTRONICALLY SIGNED BY: RIMMA CONNER Jr., MD DATE: 04/03/251430 ED Course ED Course Orders Procedure Category Date Status Time Ct Head/Brain W/O CT 04/03/25 Resulted Contrast 11:22 Shoulder Comp 2+Vws Rt RAD 04/03/25 Resulted 11:22 Vital Signs Date Time Temp Pulse Resp B/P (MAP) Pulse Ox O2 Delivery O2 Flow Rate FiO2 04/03/25 11:14 99.1 78 18 152/87 99 Room Air 0 Medical Decision Making MDM MDM: 69-year-old female who is hard of hearing and suffers from hypertension coming [facility]. Patient states she had a ground level fall four days ago. Patient states he tripped and fell forward. Denies any LOC, no blood thinners. Patient went to see the PCP for complaints of headache and right shoulder pain and was sent here for evaluation. Patient denies having any nausea, vomiting or diarrhea. Denies any dizziness or gait disturbances. Denies any numbness, tingling or any unilateral weakness. Denies any chest pain or chest discomfort, back pain or jaw pain. Has been shows no acute finding. Shoulder x-ray is normal. Discussed findings with the patient. Educated that she needs to follow up with PCP in 1-2 days return to the hospital as needed. Patient verbalized understanding, answered all questions. Differential diagnosis: Contusion, shoulder dislocation, ICH Rationale: Tests considered and ordered secondary to shared decision making include: Previous outside records reviewed: Old ER visits. Risk of complication and/or morbidity or mortality of patient management: None Medications-Per medication reconciliation Need for hospitalization: Patient does not meet criteria for hospitalization. Need for emergency major/minor surgery: No There are no social concerns with this patient. Prescription drug management Prescriptions will include symptomatic care Patient's prior external medical records from other ER visits were reviewed by me as indicated. Prior testing and results from previous visits were reviewed. Prior tests were taken into account with medical decision making and resource utilization, independent historian/historians were used to obtain complete medical history. I independently interpreted the test that were performed, results were reviewed by me and considered findings on radiology if ordered. Medical management and examination interpretation discussions were had by me with other qualified healthcare professionals as indicated for the patient's care. DX & DISP Disposition: Discharge Departure Impression: Primary Impression: Fall Additional Impression: Shoulder contusion Condition: Stable Additional Instructions: Follow up with your primary care provider. Your CT scan is normal. Return to the hospital if you develop any severe headaches, nausea vomiting dizziness or unsteady gait. Referrals: TONI MICHELLE (PCP) Time of Disposition: 14:01 I have reviewed the case, and I agree with, Diagnosis and Plan SHIRLEY KIMBALL CNP Apr 03, 2025 11:33
--- NOTE | 2025-04-03 13:29 | HMCIMG ---
EXAM: CR right Shoulder, 3 View. CLINICAL HISTORY: fall COMPARISON: None provided. FINDINGS: BONES: No acute fracture or aggressive appearing osseous lesion. JOINTS: No dislocation. The joint spaces are normal. Heterotopic calcification within the rotator interval likely reflecting rotator cuff tendon pathology. SOFT TISSUES: The soft tissues are unremarkable. IMPRESSION: No acute abnormality evident on examination of the right shoulder. No acute fracture or dislocation. /[employer]
--- NOTE | 2025-04-03 13:31 | HMCIMG ---
EXAM: CT Head Without IV contrast. CLINICAL HISTORY: fall TECHNIQUE: Axial computed tomography images of the head/brain without intravenous contrast. COMPARISON: None provided. FINDINGS: BRAIN: Chronic white matter small vessel ischemic changes bilaterally. No evidence of acute hemorrhage. No mass lesion. No CT evidence for acute territorial infarct. No midline shift or extra-axial collections. VENTRICLES: No hydrocephalus. ORBITS: The orbits are unremarkable. SINUSES AND MASTOIDS: The paranasal sinuses and mastoid air cells are clear. BONES: No fracture. Hyperosteosis frontalis interna. SOFT TISSUES: Unremarkable. IMPRESSION: 1. No acute intracranial findings. /[place]
--- NOTE | 2025-04-03 14:21 | NUR ---
CALLED PT MULITPLE TIMES TO GIVE D/C PAPERWORK, NO ANSWER. PT NOT IN FAST TRACK OR LOBBY.
== END ==
LOC: EDH 11:08
DX: S40.011A Contusion of right shoulder, initial encounter (principal); R51.9 Headache, unspecified; E78.00 Pure hypercholesterolemia, unspecified; I10 Essential (primary) hypertension; Z88.0 Allergy status to penicillin; Z90.5 Acquired absence of kidney; Z90.710 Acquired absence of both cervix and uterus; W01.0XXA Fall on same level from slipping, tripping and stumbling without subsequent striking against object, initial encounter; Y93.89 Activity, other specified; Y92.89 Other specified places as the place of occurrence of the external cause; Y99.8 Other external cause status
CPT/HCPCS: 70450; 73030; 99284